=== PATIENT | female | born 1995 | race Two or more races ===

== ENCOUNTER 2016-11-03 15:20 | Emergency (ER) | payer SELFPAY ==
[~2016-11-03] VITALS: Ht 373.4 cm; Wt 39.5 kg
[2016-11-03 16:02] VITALS: BP 101/50
[2016-11-03] MEDS ORDERED: TETANUS-DIPTH-ACEL PERTUSSIS 0.5ML SYRG IM ONE (17:30)
== END 2016-11-03 17:45 | disposition home or self-care (01) ==
LOC: ER 15:40
DX: S61.210A Laceration without foreign body of right index finger without damage to nail, initial encounter (principal); W22.8XXA Striking against or struck by other objects, initial encounter; Y93.89 Activity, other specified; Y99.8 Other external cause status; Y92.89 Other specified places as the place of occurrence of the external cause; Z23 Encounter for immunization
CPT/HCPCS: 12001; 90471; 90715

== ENCOUNTER 2017-10-17 22:39 | Emergency (ER) | payer MEDICAID ==
[~2017-10-17] VITALS: Ht 152.4 cm; Wt 40.4 kg
[2017-10-17 22:50] VITALS: BP 119/74
[2017-10-18] MEDS ORDERED: HYDROcodone-ACET 7.5/325MG TAB PO ONE (00:45)
== END 2017-10-18 00:50 | disposition home or self-care (01) ==
LOC: ER 22:42
DX: M62.838 Other muscle spasm (principal); M54.2 Cervicalgia; R51 Headache; W01.198A Fall on same level from slipping, tripping and stumbling with subsequent striking against other object, initial encounter; Y93.89 Activity, other specified; Y99.8 Other external cause status; Y92.89 Other specified places as the place of occurrence of the external cause
CPT/HCPCS: 70450

== ENCOUNTER 2019-02-14 02:49 | Emergency (ER) | payer MEDICAID ==
[~2019-02-14] VITALS: Ht 152.4 cm; Wt 43.1 kg
[2019-02-14 04:03] LABS: Basophils # (auto) 0 uL; Basophils % (auto) 0.2 % (0.0-2.0); Eosinophils # (auto) 0.2 uL; Eosinophils % (auto) 3.4 % (0.0-7.0); Hematocrit 41.7 % (36.0-46.0); Hemoglobin 14.5 g/dL (12.2-16.2); Lymphocytes % (auto) 20.4 % (10.0-50.0); Mean Corpuscular Hemoglobin 31.8 pg (28.0-32.0); Mean Corpuscular Hgb Conc. 34.7 g/dL (32.0-36.0); Mean Corpuscular Volume 91.7 fL (80.0-100.0); Monocytes # (auto) 0.5 uL; Monocytes % (auto) 10.6 % (0.0-12.0); Neutrophils # (auto) 3.2 uL; Neutrophils % (auto) 65.4 % (37.0-80.0); Nucleated Red Blood Cells % 0.1 %; Platelet Count (auto) 166 10^3/uL (140-450); Red Blood Cells 4.55 10^6/uL (4.0-5.20); Red Cell Distribution Width 12.8 % (11.8-14.3); White Blood Cell 4.9 10^3/uL (4.4-10.8)
[2019-02-14 04:20] LABS: Calcium 8.3 mg/dL (8.5-10.1)
[2019-02-14 04:22] LABS: Urine Bacteria FEW /hpf (None Seen); Urine Blood 2+ /uL (Negative); Urine Mucus FEW (None Seen); Urine WBC 27 /hpf (0 - 5)
[2019-02-14 04:23] LABS: Bilirubin, Total 0.4 mg/dL (0.2-1.0); Total Protein 7.4 g/dL (6.4-8.2)
[2019-02-14] MEDS ORDERED: HYDROcodone-ACET 5/325MG TAB PO ONE (05:30)
[2019-02-14 06:00] VITALS: BP 98/53
== END 2019-02-14 07:35 | disposition home or self-care (01) ==
LOC: ER 02:50
DX: N39.0 Urinary tract infection, site not specified (principal)
CPT/HCPCS: 36415; 74176; 80053; 81001; 81025; 82150; 83690; 85025

== ENCOUNTER 2020-10-09 12:34 | Emergency (ER) | payer OTHER, MEDICAID ==
[~2020-10-09] VITALS: Ht 152.4 cm; Wt 44.5 kg
[2020-10-09 12:51] VITALS: BP 107/58
[2020-10-09 13:08] LABS: Urine Bacteria MOD /hpf (None Seen); Urine Blood 1+ /uL (Negative); Urine Mucus FEW (None Seen); Urine WBC 10 /hpf (0 - 5)
== END 2020-10-09 14:23 | disposition home or self-care (01) ==
LOC: ER 12:34
DX: N39.0 Urinary tract infection, site not specified (principal)
CPT/HCPCS: 81001; 81025

== ENCOUNTER 2021-01-01 09:25 | Emergency (ER) | payer OTHER, MEDICAID ==
[~2021-01-01] VITALS: Ht 152.4 cm; Wt 38.6 kg
[2021-01-01 10:07] LABS: Alcohol, Urine < 3.0 mg/dL (0-10); Amphetamine Screen, Urine NEGATIVE (NEGATIVE); Barbiturate Scree,Urine NEGATIVE (NEGATIVE); Benzodiazephine Screen, Urine NEGATIVE (NEGATIVE); Cannabinoid Screen, Urine NEGATIVE (NEGATIVE); Cocaine Screen, Urine NEGATIVE (NEGATIVE); Opiate Scree,Urine NEGATIVE (NEGATIVE); Phencyclidine Screen, Urine NEGATIVE (NEGATIVE)
[2021-01-01 10:18] LABS: Basophils # (auto) 0 10 ^3/uL (0-0.2); Basophils % (auto) 0.5 % (0.0-2.0); Eosinophils # (auto) 0.1 10 ^3/uL (0-0.8); Eosinophils % (auto) 3.1 % (0.0-7.0); Hematocrit 42.5 % (36.0-46.0); Lymphocytes # (auto) 1.2 10 ^3/uL (0.4-5.4); Lymphocytes % (auto) 29.2 % (10.0-50.0); Mean Corpuscular Hemoglobin 32.4 pg (28.0-32.0); Mean Corpuscular Hgb Conc. 35.2 g/dL (32.0-36.0); Mean Corpuscular Volume 91.9 fL (80.0-100.0); Monocytes # (auto) 0.3 10 ^3/uL (0-1.3); Monocytes % (auto) 6.2 % (0.0-12.0); Neutrophils # (auto) 2.4 10 ^3/uL (1.6-8.6); Nucleated Red Blood Cells % 0.1 %; Platelet Count (auto) 194 10^3/uL (140-450); Red Blood Cells 4.62 10^6/uL (4.0-5.20); Red Cell Distribution Width 12.7 % (11.8-14.3)
[2021-01-01 10:30] LABS: Albumin 4.3 g/dL (3.4-5.0); Potassium 4.1 mmol/L (3.5-5.1)
[2021-01-01 10:31] LABS: Urine Bacteria MANY /hpf (None Seen); Urine Blood TRACE /uL (Negative); Urine Hyaline Cast FEW /lpf (0 - 2); Urine Mucus FEW (None Seen); Urine WBC 107 /hpf (0 - 5)
[2021-01-01 10:32] LABS: BUN/Creatinine Ratio 16.9; Bilirubin, Total 0.5 mg/dL (0.2-1.0); Total Protein 7.7 g/dL (6.4-8.2)
[2021-01-01 12:29] VITALS: BP 104/70
[2021-01-01] MEDS ORDERED: cefTRIAXone SOD 1,000 MG VL IM ONE (12:30)
[2021-01-01] MEDS ORDERED: ACETAMINOPHEN 325 MG TAB PO ONE (12:30)
== END 2021-01-01 13:04 | disposition home or self-care (01) ==
LOC: ER 09:25
DX: N30.00 Acute cystitis without hematuria (principal)
CPT/HCPCS: 36415; 76705; 80053; 80307; 81001; 81025; 85025; 96372; 99284; J0696